=== PATIENT | female | born 1985 | race Caucasian/White ===

== ENCOUNTER 2021-05-23 05:17 | Inpatient (IN) | payer BC ==
[2021-05-23] MEDS ORDERED: hydrALAZINE 20 MG/ML VIAL SLOW IVP PRN ×2 (05:41→13:35)
[2021-05-23] MEDS ORDERED: Ondansetron PF 4 MG/2 ML Vial IVP PRN ×3 (05:41→13:35)
[2021-05-23] MEDS ORDERED: Bicitra 30 ML UDCUP PO PRN (05:41)
[2021-05-23] MEDS ORDERED: Promethazine HCl 25 MG/ML VIAL IM PRN ×2 (05:41→09:27)
[2021-05-23] MEDS ORDERED: Lactated Ringer's 1,000 ML IV SCH (05:41)
[2021-05-23] MEDS ORDERED: Famotidine/PF 20 mg/2ml Vial SLOW IVP PRN (05:41)
[2021-05-23] MEDS ORDERED: CEFAZOLIN 2 GM in Premix Bag 1 BAG IVPB SCH (05:41)
[2021-05-23 06:37] LABS: Hemoglobin 8.3 g/dL (12.0-15.5); Mean Corpuscular HGB CONC 29.3 g/dL (32.0-36.0); Mean Corpuscular Hemoglobin 22.5 pg (27.0-33.0); Mean Corpuscular Volume 76.7 fl (81.6-98.3); Mean Platelet Volume 11.4 fl (7.4-10.4); Platelet Count 275 10x3/uL (150-450); RBC Distribution Width 23.9 % (11.5-14.5); Red Blood Cell (RBC) Count 3.69 10x6/uL (3.90-5.03); White Blood Cell (WBC) Count 11.9 10x3/uL (3.5-10.5)
[2021-05-23] MEDS ORDERED: Morphine PF 10 MG/10 ML VIAL ONE (07:13)
[2021-05-23] MEDS ORDERED: Fentanyl 100 MCG/2 ML VIAL ONE (07:14)
[2021-05-23] MEDS ORDERED: Ondansetron PF 4 MG/2 ML Vial ONE (07:14)
[2021-05-23] MEDS ORDERED: Oxytocin 10 UNITS/ML VIAL ONE ×2 (07:14→08:52)
[2021-05-23] MEDS ORDERED: Phenylephrine 40 MG/NS 250 ML 250 ML ONE (07:14)
[2021-05-23] MEDS ORDERED: Dexamethasone 4 mg/ml Vial ONE (07:14)
[2021-05-23 07:19] LABS: Syphilis Antibody Nonreactive (Nonreactive); Syphilis Antibody Index 0.07 S/CO (<1.00 Non-Reactive)
[2021-05-23 07:20] LABS: Hep B Surf Ag Non-Reactive S/CO (NonReactive)
[2021-05-23 07:30] LABS: HBSAg Index 0.18 S/CO (0-0.99)
[2021-05-23] MEDS ORDERED: ePHEDrine Sulfate 50 MG/10 ML VIAL ONE (07:57)
[2021-05-23] MEDS ORDERED: Ketorolac Tromethamine 30 MG/ML VIAL ONE (08:30)
[2021-05-23 08:34] VITALS: BMI 39.6
[2021-05-23] MEDS ORDERED: Fentanyl 100 MCG/2 ML VIAL SLOW IVP PRN (09:27)
[2021-05-23] MEDS ORDERED: Naloxone HCl 0.4 mg/ml Vial IV PRN (09:27)
[2021-05-23] MEDS ORDERED: Naloxone HCl 0.4 mg/ml Vial IVP PRN ×2 (09:27)
[2021-05-23] MEDS ORDERED: Promethazine HCl 25 MG SUPP PR PRN (09:27)
[2021-05-23] MEDS ORDERED: diphenhydrAMINE 50 MG/ML VIAL IVP PRN (09:27)
[2021-05-23] MEDS ORDERED: Ketorolac Tromethamine 30 MG/ML VIAL IVP PRN (09:27)
[2021-05-23] MEDS ORDERED: Meperidine HCl/PF 25 MG/ML VIAL SLOW IVP PRN (09:27)
[2021-05-23] MEDS ORDERED: Ondansetron HCl/PF 4 MG/2 ML Vial IVP PRN (09:27)
[2021-05-23] MEDS ORDERED: HYDROmorphone 2 MG/ML VIAL SLOW IVP PRN (09:27)
[2021-05-23] MEDS ORDERED: Hydrocerin (Eucerin) Cream 120 gm Jar TOP PRN (09:27)
[2021-05-23] MEDS ORDERED: Communication Order-Pharmacy FS SCH (09:30)
[2021-05-23] MEDS ORDERED: Ketorolac Tromethamine 30 MG/ML VIAL IVP SCH (09:30)
[2021-05-23] MEDS ORDERED: Meperidine HCl/PF 25 MG/ML VIAL ONE (12:09)
[2021-05-23] MEDS ORDERED: diphenhydrAMINE 25 MG CAP PO PRN (13:35)
[2021-05-23] MEDS ORDERED: Lanolin Ointment 7 GM TUBE TOP PRN (13:35)
[2021-05-23] MEDS ORDERED: Simethicone Chewable 80 MG TAB PO PRN (13:35)
[2021-05-23] MEDS ORDERED: Misoprostol 200 MCG TAB PR PRN (13:35)
[2021-05-23] MEDS ORDERED: NS w/ Oxytocin 30 units 500 ML IV SCH (13:35)
[2021-05-23] MEDS ORDERED: Acetaminophen 325 MG TAB PO PRN (13:35)
[2021-05-23] MEDS: Ferrous Sulfate 325 MG TAB PO SCH (20:39)
[2021-05-23] MEDS: Docusate Calcium (SURFAK) 240 MG CAP PO SCH (20:40)
[2021-05-23] MEDS ORDERED: HYDROcodone/Acetaminophen 5/325 mg Tablet PO PRN ×2 (21:30)
[2021-05-24 06:53] LABS: Hemoglobin 8.1 g/dL (12.0-15.5); Mean Corpuscular HGB CONC 29.8 g/dL (32.0-36.0); Mean Corpuscular Hemoglobin 22.8 pg (27.0-33.0); Mean Corpuscular Volume 76.4 fl (81.6-98.3); Mean Platelet Volume 11.6 fl (7.4-10.4); Platelet Count 279 10x3/uL (150-450); RBC Distribution Width 24.2 % (11.5-14.5); Red Blood Cell (RBC) Count 3.56 10x6/uL (3.90-5.03); White Blood Cell (WBC) Count 19.8 10x3/uL (3.5-10.5)
[2021-05-24] MEDS: Ferrous Sulfate 325 MG TAB PO SCH ×2 (09:00→21:05)
[2021-05-24] MEDS: Prenatal Vitamin 1 TAB PO SCH (09:01)
[2021-05-24] MEDS: Docusate Calcium (SURFAK) 240 MG CAP PO SCH ×2 (09:01→21:05)
[2021-05-24] MEDS: Ibuprofen 800 MG TAB PO SCH ×2 (13:35→21:06)
[2021-05-24] MEDS ORDERED: Boostrix 0.5 ML (Tdap) VIAL IM ONE (13:35)
[2021-05-25] MEDS: Ibuprofen 800 MG TAB PO SCH (05:10)
[2021-05-25 07:35] VITALS: BP 126/67; TEMP 97.6
[2021-05-25] MEDS: Prenatal Vitamin 1 TAB PO SCH (08:53)
[2021-05-25] MEDS: Docusate Calcium (SURFAK) 240 MG CAP PO SCH (08:53)
[2021-05-25] MEDS: Ferrous Sulfate 325 MG TAB PO SCH (08:53)
== END 2021-05-25 10:35 | disposition home or self-care (01) | DRG 788 ==
LOC: CSHLD 05:17 → CSHANTE 13:34
PROVIDERS: ADMIT Obstetrics & Gynecology; ATTEND Obstetrics & Gynecology
PROC: 10D00Z1 Extraction of Products of Conception, Low, Open Approach (ICD-10-PCS; principal; 2021-05-23)
PROC: 3E0P05Z Introduction of Adhesion Barrier into Female Reproductive, Open Approach (ICD-10-PCS; 2021-05-23)
DX: O34.211 Maternal care for low transverse scar from previous cesarean delivery (principal); K91.1 Postgastric surgery syndromes; O99.62 Diseases of the digestive system complicating childbirth; Z3A.39 39 weeks gestation of pregnancy; Z37.0 Single live birth; O99.02 Anemia complicating childbirth; D64.9 Anemia, unspecified; O99.892 Other specified diseases and conditions complicating childbirth; N73.6 Female pelvic peritoneal adhesions (postinfective); O69.81X0 Labor and delivery complicated by cord around neck, without compression, not applicable or unspecified; Z20.822 Contact with and (suspected) exposure to COVID-19
CPT/HCPCS: 36415; 51702; 85027; 86780; 86850; 86900; 86901; 87340; J0690; J1100; J1885; J2175; J2274; J2405; J2590; J3010; U0003; U0005

== ENCOUNTER 2025-03-21 13:52 | Outpatient (CLI) | payer BC | END 2025-03-21 13:53 | disposition home or self-care (01) | LOC: CSHMAMMO 13:52 | PROVIDERS: ATTEND Nurse Practitioner Family | DX: Z12.31 Encounter for screening mammogram for malignant neoplasm of breast (principal); Z80.3 Family history of malignant neoplasm of breast; N64.89 Other specified disorders of breast | CPT/HCPCS: 77063; 77067 ==

== ENCOUNTER 2025-03-29 07:41 | Outpatient (CLI) | payer BC | END 2025-03-29 07:42 | disposition home or self-care (01) | LOC: CSHMAMMO 07:41 | PROVIDERS: ATTEND Nurse Practitioner Family | DX: N64.89 Other specified disorders of breast (principal); N63.15 Unspecified lump in the right breast, overlapping quadrants; N63.13 Unspecified lump in the right breast, lower outer quadrant | CPT/HCPCS: G0279 ==